=== PATIENT | female | born 1970 | race Caucasian/White ===

== ENCOUNTER 2017-01-03 11:48 | Outpatient (CLI) ==
[2013-03-21 18:34] VITALS: TEMP 97.4
[2016-07-26 16:50] VITALS: BMI 43.2
[2017-01-03 13:17] LABS: BILIRUBIN,URINE Negative (NEGATIVE); KETONES,URINE Negative (NEGATIVE); LEUKOCYTE ESTERASE ,URINE 3+ (NEGATIVE); NITRITE,URINE Positive (NEGATIVE); PROTEIN,URINE 3+ (NEGATIVE); URINE, BLOOD 3+ (NEGATIVE)
[2017-01-03 13:27] LABS: ADD URINE MICROSCOPIC YES; BACTERIA,URINE 2+ (NOT PRESENT)
== END 2017-01-03 11:49 | disposition home or self-care (01) ==
LOC: LAB 11:48
PROVIDERS: ATTEND Nurse Practitioner Family
DX: A59.9 Trichomoniasis, unspecified (principal); N39.0 Urinary tract infection, site not specified
CPT/HCPCS: 81001; 87086; 87186; 87800

== ENCOUNTER 2017-01-04 02:31 | Outpatient (CLI) ==
[2013-03-21 18:34] VITALS: TEMP 97.4
[2017-01-05 15:54] VITALS: BMI 43.5
== END 2017-01-04 02:32 ==
LOC: AMBL 02:31
PROVIDERS: ATTEND Family Medicine
DX: N39.0 Urinary tract infection, site not specified (principal); N20.0 Calculus of kidney

== ENCOUNTER 2017-01-05 15:40 | Emergency (ER) ==
[2017-01-05 15:54] VITALS: BP 156/97; TEMP 99.5; BMI 43.5
[2017-01-05 16:24] LABS: BILIRUBIN,URINE Negative (NEGATIVE); KETONES,URINE Negative (NEGATIVE); LEUKOCYTE ESTERASE ,URINE Negative (NEGATIVE); NITRITE,URINE Negative (NEGATIVE); PH,URINE 5.5 (5-9); PROTEIN,URINE Trace (NEGATIVE); URINE, BLOOD 1+ (NEGATIVE)
[2017-01-05 16:30] LABS: ADD URINE MICROSCOPIC YES; BACTERIA,URINE TRACE (NOT PRESENT)
[2017-01-05 16:46] LABS: BASOPHILS # (AUTO) 0.1 K/uL (0-0.2); BASOPHILS % (AUTO) 0.7 % (0.0-3.0); EOSINOPHILS # (AUTO) 0.2 K/ul (0.0-0.7); EOSINOPHILS % (AUTO) 2.7 % (0.0-7.0); HEMATOCRIT 42.5 % (37.0-47.0); HEMOGLOBIN 14.3 g/dl (12.0-16.0); IMMATURE GRANULOCYTE % (AUTO) 0.1 % (0.0-5.0); MEAN CORPUSCULAR HGB CONC 33.6 (31.8-35.4); MEAN CORPUSCULAR VOLUME 89.3 fl (81.0-99.0); MONOCYTES # (AUTO) 0.7 K/uL (0.4-2.0); MONOCYTES % (AUTO) 9.2 (0-10); NEUTROPHILS # (AUTO) 4.7 K/ul (2.0-6.9); NEUTROPHILS % (AUTO) 61.3; PLATELET COUNT 321 10^3/uL (140-440); RED BLOOD COUNT 4.76 10^6/ul (4.20-5.40); WHITE BLOOD COUNT 7.69 K/ul (4.6-10.2)
--- NOTE | 2017-01-05 16:57 | CT ---
EXAM: CT abdomen pelvis without contrast HISTORY: Abdominal pain COMPARISON: None TECHNIQUE: Serial axial images of the abdomen pelvis were performed from the lung bases through the inferior pelvis without contrast. These were viewed in multiple planes. FINDINGS: The lung bases are clear. Evaluation is limited due to lack of contrast. The liver is unremarkable. The gallbladder has been resected. The adrenal glands are normal. The kidneys are normal without obstructive uropathy. Th ere is a punctate 0.2 cm stone in the left mid pole. The spleen demonstrates multiple calcified gra nulomas. The pancreas is unremarkable. The stomach is mildly distended. The small bowel in the abdomen pelvis is unremarkable. The colon is unremarkable. There is a small fat-containing umbilical hernia. There is no free air, free fluid or lymphadenopathy. The urinary bladder is mildly distended. The uterus is not visualized. The distal appendix within the pelvis as seen on axial image 120 through 122 demonstrate some minimal peripheral hazy ground-glass with a central punctate calcification. The osseous structures are unremarkable. IMPRESSION: The distal appendix extending into the inferior pelvis demonstrates a central calcification and mini mal surrounding hazy ground-glass inflammatory stranding suggestive of early appendicitis. There is no free air or focal fluid collection identified. A nonobstructing left renal stone, a small fat-containing umbilical hernia and prior cholecystectomy .
[2017-01-05 17:03] LABS: ALBUMIN 3.9 g/dL (3.4-5.0); ALBUMIN/GLOBULIN RATIO 1.05; BILIRUBIN,TOTAL 0.36 mg/dL (0.00-1.20); BUN/CREATININE RATIO 10.28; CALCIUM 9.1 mg/dL (8.2-10.2); CREATININE 1.07 mg/dL (0.60-1.30); TOTAL PROTEIN 7.6 g/dL (6.4-8.2)
--- NOTE | 2017-01-05 17:06 | ED.PDOC ---
General ED Provider: Dr. NOHELIA MARTINES Chief Complaint: Urinary Problem Stated Complaint: left flank pain, dysuria Time Seen by Physician: 16:00 (left flank pain on cipro seen with entire nusing staff) Mode of Arrival: Walk-In Information Source: Patient Exam Limitations: No limitations Primary Care Provider: AARON KLEIN Nursing and Triage Documentation Reviewed and Agree: Yes (seen with nursing staff and ICE BAG ASSEMBLER) Complaint Exam - Complaint/Exam Patient Complains of: Reports: Dysuria Symptoms Are: Still present Timing: Intermittent Initial Severity: Mild Current Severity: Mild Location of Pain: Reports: Left, Flank Character: Reports: Dull Aggravating: Reports: Urination Alleviating: Reports: None Associated Signs and Symptoms: Reports: Back pain, Dysuria. Denies: Diaphoresis , Fever, Hematuria, Constipation, Blood in stool, Rectal pain, Appetite change, Nausea, Vomiting, Decreased urine output, Increased urine frequency, Increased thirst, Decreased activity, Lethargy, Abdominal Pain, Bubble bath use, Vaginal bleeding, Vaginal discharge, Genital swelling, Genital blisters, Retained foreign body Related History: Reports: Similar episode Differential Diagnoses: Renal Colic, Ureteral Stone, UTI Review of Systems - Review Of Systems Constitutional: Reports: No symptoms Eyes: Reports: No symptoms Ears, Nose, Mouth, Throat: Reports: No symptoms Respiratory: Reports: No symptoms Cardiac: Reports: No symptoms GI: Reports: No symptoms : Reports: Dysuria Musculoskeletal: Reports: Back pain Skin: Reports: No symptoms Neurological: Reports: No symptoms Endocrine: Reports: No symptoms Hematologic/Lymphatic: Reports: No symptoms All Other Systems: Reviewed and Negative Past Medical History - Past Medical History Endocrine: Reports: None Cardiovascular: Reports: None Respiratory: Reports: None Hematological: Reports: None Gastrointestinal: Reports: None Genitourinary: Reports: None Neuro/Psych: Reports: None Musculoskeletal: Reports: Back Pain Cancer: Reports: None Last Menstrual Period: tubal ligation Other Pertinent Past Medical History: Tonsils Carpal Tunnel Hysterectomy 2012 btl 1993 - Surgical History General Surgical History: Reports: Hysterectomy (2012), Tubal ligation (btl 1993 ), Cholecystectomy, Orthopedic (Carpal Tunnel), Other (SURGERY TO REMOVE KIDNEY STONE, HYSTERECTOMY 2010 CHOLECYSTECTOMY) - Family History Family History: Reports: None (parents( parents) alove and well-adopted by grandparents("old age") - Social History Smoking Status: Never smoker Hx Substance Use: Yes (past ) Alcohol Screening: None - Immunizations Tetanus Shot up to Date: (unknown) Physical Exam - Physical Exam Appearance: Well-appearing, No pain distress, Well-nourished Eyes: FLAVIO, EOMI, Conjunctiva clear ENT: Ears normal, Nose normal, Oropharynx normal Respiratory: Airway patent, Breath sounds clear, Breath sounds equal, Respirations nonlabored Cardiovascular: RRR, Pulses normal, No rub, No murmur GI/: Soft, Nontender, No masses, Bowel sounds normal, No Organomegaly Musculoskeletal: Normal strength, ROM intact, No edema, No calf tenderness Skin: Warm, Dry, Normal color Neurological: Sensation intact, Motor intact, Reflexes intact, Cranial nerves intact, Alert, Oriented Psychiatric: Affect appropriate, Mood appropriate Interpretation - Radiology Interpretation Radiology Interpretation By: Radiologist (none obstructing) Critical Care Note - Critical Care Note Total Time (mins): 0 Course - Course Hematology/Chemistry: 01/05/17 16:35 01/05/17 16:35 Orders, Labs, Meds: Lab Review 01/05/17 01/05/17 16:16 16:35 WBC 7.69 RBC 4.76 Hgb 14.3 Hct 42.5 MCV 89.3 MCH 30.0 MCHC 33.6 RDW Coeff of Raudel 12.1 Plt Count 321 Immature Gran % (Auto) 0.1 Neut % (Auto) 61.3 Lymph % (Auto) 26.0 [place] % (Auto) 9.2 Eos % (Auto) 2.7 Baso % (Auto) 0.7 Immature Gran # (Auto) 0.0 Neut # 4.7 Lymph # 2.0 [place] # 0.7 Eos # 0.2 Baso # 0.1 Sodium 141 Potassium 4.0 Chloride 106 Carbon Dioxide 26 Anion Gap 13.0 BUN 11 Creatinine 1.07 Estimated GFR (MDRD) 56.00 BUN/Creatinine Ratio 10.28 Glucose 98 Lactic Acid 9.9 Calcium 9.1 Total Bilirubin 0.36 AST 19 ALT 26 Alkaline Phosphatase 86 Total Protein 7.6 Albumin 3.9 Globulin 3.7 Albumin/Globulin Ratio 1.05 Urine Color Yellow Urine Clarity Slightly Urine pH 5.5 Ur Specific [place] 1.020 Urine Protein Trace Urine Glucose (UA) Negative Urine Ketones Negative Urine Blood 1+ Urine Nitrite Negative Urine Bilirubin Negative Urine Urobilinogen 0.2 Ur Leukocyte Esterase Negative Urine Microscopic RBC 5-10 Urine Microscopic WBC 5-10 Ur Squamous Epith Cells 5-10 Urine Bacteria Trace Urine Mucus Trace Orders Category Date Time Status BLOOD CULTURE Stat LAB 01/05/17 16:35 Received CBC W/ AUTO DIFF Stat LAB 01/05/17 16:35 Completed COMPREHENSIVE METABOLIC PANEL Stat LAB 01/05/17 16:35 Completed LACTIC ACID Stat LAB 01/05/17 16:35 Completed UA [URINALYSIS C & S IF INDICATED] Stat LAB 01/05/17 16:16 Completed URINE CULTURE Stat LAB 01/05/17 16:[address] ABDOMEN/PELVIS WO CONTRAST Stat RADS 01/05/17 16:15 Completed Vital Signs: Temp Pulse Resp BP Pulse Ox 01/05/17 15:41 99.5 F 80 20 156/97 H 95 Departure - Departure Time of Disposition: 17:12 (US [address]PORT [address] REPORT AND OTHER LABS WERE SHARED WITH PT WITH ICE BAG ASSEMBLER AT BEDSIDE ) Disposition: HOME SELF-CARE Discharge Problem: Urinary tract infectious disease, Urinary symptoms, Renal stone Instructions: Renal Colic (ED), Kidney Stones (ED), Flank Pain (ED) Condition: Good Pt referred to PMD for follow-up: No Allergies/Adverse Reactions: Allergies sulfathiazole [Sulfathiazole] Adverse Reaction (Severe, Verified 01/05/17 15:55) Swelling itching, swelling, rash Home Medications: Ambulatory Orders Hydrocodone/Acetaminophen [[place] 5-325 Tablet] 1 each PO Q6HR PRN #7 tablet Metronidazole [Flagyl] 500 mg PO TID 01/05/17 Nitrofurantoin Macrocrystal [Nitrofurantoin] 100 mg PO QID 01/05/17
== END 2017-01-05 17:22 | disposition home or self-care (01) ==
LOC: ED 15:40
DX: N39.0 Urinary tract infection, site not specified (principal); N20.0 Calculus of kidney
CPT/HCPCS: 36415; 80053; 81001; 83605; 85025; 87040; 87086; 99284

== ENCOUNTER 2017-02-28 11:43 | Outpatient (CLI) ==
[2013-03-21 18:34] VITALS: TEMP 97.4
== END 2017-02-28 11:44 | disposition home or self-care (01) ==
LOC: LAB 11:43
PROVIDERS: ATTEND Nurse Practitioner Family
DX: J02.9 Acute pharyngitis, unspecified (principal)
CPT/HCPCS: 87651; 87880

== ENCOUNTER → 2017-03-13 | Outpatient (POV) ==
[2013-03-21 18:34] VITALS: TEMP 97.4
== END ==
LOC: OUTPT 00:01
PROVIDERS: ATTEND Otolaryngology
DX: H91.91 Unspecified hearing loss, right ear (principal); H93.11 Tinnitus, right ear
CPT/HCPCS: 92557; 92567

== ENCOUNTER 2017-05-29 13:55 | Outpatient (CLI) ==
[2013-03-21 18:34] VITALS: TEMP 97.4
[2017-05-29 14:05] LABS: BILIRUBIN,URINE Negative (NEGATIVE); KETONES,URINE Negative (NEGATIVE); LEUKOCYTE ESTERASE ,URINE Negative (NEGATIVE); NITRITE,URINE Negative (NEGATIVE); PH,URINE 5.5 (5-9); PROTEIN,URINE Negative (NEGATIVE); URINE, BLOOD Trace-lysed (NEGATIVE)
[2017-05-29 14:06] LABS: ADD URINE MICROSCOPIC YES
[2017-05-29 14:15] LABS: BACTERIA,URINE 2+ (NOT PRESENT)
== END 2017-05-29 13:56 | disposition home or self-care (01) ==
LOC: LAB 13:55
PROVIDERS: ATTEND Nurse Practitioner Family
DX: R30.9 Painful micturition, unspecified (principal)
CPT/HCPCS: 81001; 87086

== ENCOUNTER 2017-06-20 23:55 | Emergency (ER) ==
[2017-06-20 23:56] VITALS: BMI 43.5
[2017-06-21 00:09] VITALS: BP 139/86; TEMP 99
[2017-06-21] MEDS ORDERED: LIDOCAINE HCL 1% SDV SUBCUT STA (00:24)
[2017-06-21] MEDS ORDERED: BOOSTRIX IM ONE (00:44)
--- NOTE | 2017-06-21 00:58 | ED.PDOC ---
General ED Provider: Dr. GERRY JULES Chief Complaint: Fall Stated Complaint: Fell off step stool. Hit mouth on countertop. Has laceration to left side of upper lip. Pain to approx 3 teeth on top left. Says iced it. Time Seen by Physician: 00:15 Mode of Arrival: Walk-In Information Source: Patient Primary Care Provider: AARON KLEIN Nursing and Triage Documentation Reviewed and Agree: Yes Skin Complaint Exam - Laceration/Head/Facial Complaint/Exam Location of Injury: Lip Mechanism of Injury: Blunt trauma Onset/Duration: 1 hour ago Symptoms Are: Still present Initial Severity: Severe Current Severity: Moderate Aggravating: Movement Alleviating: Compression Associated Signs and Symptoms: Denies: Fever, Chills, Erythema, Numbness, Tingling Lip Picture: 1 - Laceration continues to the mucosal surface with some bleeding. Differential Diagnoses: Laceration Review of Systems - Review Of Systems Constitutional: Reports: No symptoms Eyes: Reports: No symptoms Ears, Nose, Mouth, Throat: Denies: Loose teeth Respiratory: Reports: No symptoms Cardiac: Reports: No symptoms GI: Reports: No symptoms : Reports: No symptoms Musculoskeletal: Reports: No symptoms Skin: Reports: No symptoms, Other (Left lip laceration) Neurological: Reports: No symptoms Endocrine: Reports: No symptoms Hematologic/Lymphatic: Reports: No symptoms All Other Systems: Reviewed and Negative Past Medical History - Past Medical History Endocrine: Reports: None Cardiovascular: Reports: None Respiratory: Reports: None Hematological: Reports: None Gastrointestinal: Reports: None Genitourinary: Reports: None Neuro/Psych: Reports: None Musculoskeletal: Reports: Back Pain Cancer: Reports: None Last Menstrual Period: 2010 hysterectomy Other Pertinent Past Medical History: Tonsils Carpal Tunnel Hysterectomy 2012 btl 1993 - Surgical History General Surgical History: Reports: Hysterectomy (2012), Tubal ligation (btl 1993 ), Cholecystectomy, Orthopedic (Carpal Tunnel), Other (SURGERY TO REMOVE KIDNEY STONE, HYSTERECTOMY 2010 CHOLECYSTECTOMY) - Family History Family History: Reports: None (parents( parents) alove and well-adopted by grandparents("old age") - Social History Smoking Status: Never smoker Hx Substance Use: Yes (past ) Alcohol Screening: None - Immunizations Tetanus Shot up to Date: No Physical Exam - Physical Exam Appearance: Ill-appearing, No pain distress, Well-nourished, Obese Eyes: FLAVIO, EOMI, Conjunctiva clear ENT: Ears normal, Nose normal, Oropharynx normal (Front Teeth intact. ) Respiratory: Airway patent, Breath sounds clear, Breath sounds equal, Respirations nonlabored Cardiovascular: RRR, Pulses normal, No rub, No murmur GI/: Soft, Nontender, No masses, Bowel sounds normal, No Organomegaly Musculoskeletal: Normal strength, ROM intact, No edema, No calf tenderness Skin: Warm, Dry, Normal color Neurological: Sensation intact, Motor intact, Reflexes intact, Cranial nerves intact, Alert, Oriented Psychiatric: Affect appropriate, Mood appropriate Procedures - Laceration/Wound Repair Left upper lip Wound Length (cm): 1.5 Wound Width: 0.3 Wound Depth: 0.3 Wound Explored: Clean Wound Irrigated: Yes Wound Prep: Hibiclens Anesthesia: Lidocaine Wound Debrided: Minimal Undermining: Minimal Wound Margins: [place] border aligned Wound Repaired With: Sutures (3.0 vicryl ) Suture Size and Type: 3.0 Vicryl Number of Sutures: 4 (simple interrupted. ) Sterile Dressing Applied?: No Splint Applied?: No Sling Applied?: No Progress: Tolerated procedure well Critical Care Note - Critical Care Note Total Time (mins): 0 Course - Course Orders, Labs, Meds: Orders Category Date Time Status Acetaminophen [Tylenol] MEDS 06/21/17 01:03 Discontinued 1,000 mg PO ONCE STA Diphth,Pertuss(Acell),Tet Vac [Boostrix] MEDS 06/21/17 00:44 Discontinued 0.5 ml IM .ONCE ONE Lidocaine HCl/Pf [Lidocaine HCl 1% Sdv] MEDS 06/21/17 00:24 Discontinued 5 ml SUBCUT ONCE STA Medications Discontinued Medications Generic Name Dose Route Start Last Admin Trade Name Freq PRN Reason Stop Dose Admin Acetaminophen 1,000 mg 06/21/17 01:03 06/21/17 01:13 Tylenol PO 06/21/17 01:04 1,000 mg ONCE STA Administration Diphtheria/Pertussis/Tetanus Vacc 0.5 ml 06/21/17 00:44 06/21/17 00:54 Boostrix IM 06/21/17 00:45 0.5 ml .ONCE ONE Administration Lidocaine HCl 5 ml 06/21/17 00:24 06/21/17 00:57 Lidocaine Hcl 1% Sdv SUBCUT 06/21/17 00:25 5 ml ONCE STA Administration Vital Signs: Temp Pulse Resp BP Pulse Ox 06/20/17 23:56 99 F 79 20 139/86 96 Departure - Departure Time of Disposition: 00:58 Disposition: HOME SELF-CARE Discharge Problem: Laceration of lip without complication Instructions: Facial Laceration (ED) Condition: Stable Pt referred to PMD for follow-up: Yes (3 days ) Additional Instructions: Take Tylenol as needed for pain Follow up with PCp in 3 days Avoid bitting on any hard food with your front teeth for at lest two weeks. If pain continues see your dentist. Allergies/Adverse Reactions: Allergies sulfathiazole [Sulfathiazole] Adverse Reaction (Severe, Verified 06/21/17 00:09) Swelling itching, swelling, rash Home Medications: Ambulatory Orders 1 [No Reported Medications] 06/21/17 Disposition Discussed With: Patient, Family
[2017-06-21] MEDS ORDERED: TYLENOL PO STA (01:03)
== END 2017-06-21 01:20 | disposition home or self-care (01) ==
LOC: ED 23:55
DX: S01.511A Laceration without foreign body of lip, initial encounter (principal); W17.89XA Other fall from one level to another, initial encounter
CPT/HCPCS: 90471; 96372; 99283

== ENCOUNTER 2017-10-17 06:53 | Emergency (ER) ==
[2017-10-17 07:00] VITALS: BP 148/88; TEMP 97.4; BMI 43.4
--- NOTE | 2017-10-17 07:18 | ED.PDOC ---
General ED Provider: Dr. MARY LOU KESSLER Chief Complaint: Respiratory Complaint Stated Complaint: I ache all over. Concerned over possible Rt Sided pink eye- started on Saturday with respiratory congestion. Now aching all over and has Rt sided Flank pain -concerned over possible UTI. Hx previous Renal stone and lumbar spinal stenosis. Time Seen by Physician: 07:10 Mode of Arrival: Walk-In Information Source: Patient Exam Limitations: No limitations Primary Care Provider: JASON CLOUD Referred to ED by: Other Nursing and Triage Documentation Reviewed and Agree: Yes Reviewed sepsis parameters & appropriate labs ordered?: Yes System Inflammatory Response Syndrome: Not Applicable Sepsis Protocol: For patient's 13 years and over: Temp is 96.8 and below OR 101 and greater Pulse >90 BPM Resp >20/minute Acutely Altered Mental Status Are patient's symptoms suggestive of a new infection, such as: -Pneumonia -Skin, Soft Tissue -Endocarditis -UTI -Bone, Joint Infection -Implantable Device -Acute Abdominal Infection -Wound Infection -Meningitis -Blood Stream Catheter Infection -Unknown System Inflammatory Response Syndrome: Not Applicable Respiratory Complaint Exam - Respiratory Complaint/Exam Symptoms Are: Still present Timing: Intermittent Initial Severity: Mild Current Severity: Mild Location: Chest Character: Reports: Dry cough Aggravating: Reports: None Alleviating: Reports: None Associated Signs and Symptoms: Reports: Chills, URI, Nasal congestion, Sinus discomfort, Sore throat, Increased urination. Denies: Rapid breathing, Dyspnea , Wheezing, Calf swelling, Edema, Hoarseness, Decreased oral intake, Increased thirst, Increased appetite History of Healthcare-Acquired Pneumonia: No Review of Systems - Review Of Systems Constitutional: Reports: Chills, Malaise. Denies: Diaphoresis, Fever, Weakness , Sweats, Loss of appetite Eyes: Reports: Drainage, Inflammation, Pain. Denies: Previous injury, Shadows, Glasses Ears, Nose, Mouth, Throat: Reports: Throat pain. Denies: Ear pain, Ear discharge, Nose pain, Nose discharge, Epistaxis, Mouth pain, Mouth swelling, Loose teeth, Throat swelling Respiratory: Reports: Cough. Denies: Short of air, Stridor, Wheezing Cardiac: Reports: No symptoms GI: Reports: No symptoms : Reports: Flank pain. Denies: Burning, Dysuria, Discharge, Incontinence, Pain Musculoskeletal: Reports: Back pain, Muscle pain, Muscle stiffness. Denies: Neck pain Skin: Reports: No symptoms. Denies: Bruising, Change in color, Change in hair/ nails Neurological: Reports: No symptoms Endocrine: Reports: No symptoms Hematologic/Lymphatic: Reports: No symptoms All Other Systems: Reviewed and Negative Past Medical History - Past Medical History Endocrine: Reports: None Cardiovascular: Reports: None Respiratory: Reports: None Hematological: Reports: None Gastrointestinal: Reports: None Genitourinary: Reports: None, UTI, Kidney stones Neuro/Psych: Reports: None Musculoskeletal: Reports: Back Pain Cancer: Reports: None Last Menstrual Period: hysterectomy Other Pertinent Past Medical History: Tonsils Carpal Tunnel Hysterectomy 2012 btl 1993 - Surgical History General Surgical History: Reports: Hysterectomy (2012), Tubal ligation (btl 1993 ), Cholecystectomy, Orthopedic (Carpal Tunnel), Other (SURGERY TO REMOVE KIDNEY STONE, HYSTERECTOMY 2010 CHOLECYSTECTOMY) - Family History Family History: Reports: None (parents( parents) alove and well-adopted by grandparents("old age") - Social History Smoking Status: Never smoker Hx Substance Use: Yes (past ) Alcohol Screening: None 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 Bulbar conjunctiva normal; neg drainage (pt states crusted over last night)), Conjunctiva inflammed, Right pupil size (3mm), Left pupil size (3mm) ENT: Ears normal (EAC's dried Cerumen; Rt TM full, slightly erythrematous. Lt TM WNL), Nose normal, Oropharynx normal, Rhinorrhea Neck: Supple Respiratory: Airway patent, Breath sounds clear, Breath sounds equal, Respirations nonlabored Cardiovascular: RRR, Pulses normal, No rub, No murmur GI/: Soft, Nontender, No masses, Bowel sounds normal Musculoskeletal: Normal strength (Mild lt lumbar spine/flank tenderness-states always tender and hurting), ROM intact, No calf tenderness Skin: Warm, Dry, Normal color Neurological: Sensation intact, Motor intact, Cranial nerves intact, Alert, Oriented Psychiatric: Affect appropriate, Mood appropriate Re-Evaluation - Re-Evaluation Time of Re-Evaluation: 08:50 (Appears to be comfortable and states Tylenol has helped to reduce aching discomfort and headache.) Status: Unchanged Appearance: NAD Lungs: Clear Skin: Warm and Dry Neuro: Alert and Oriented X3 CV: RRR Critical Care Note - Critical Care Note Total Time (mins): 0 Course - Course Hematology/Chemistry: 10/17/17 07:40 10/17/17 07:40 Orders, Labs, Meds: Lab Review 10/17/17 10/17/17 10/17/17 07:30 07:40 07:40 WBC 5.02 RBC 4.60 Hgb 14.2 Hct 40.6 MCV 88.3 MCH 30.9 MCHC 35.0 RDW Coeff of Raudel 12.4 Plt Count 269 Immature Gran % (Auto) 0.2 Neut % (Auto) 43.6 Lymph % (Auto) 44.0 [place] % (Auto) 8.6 Eos % (Auto) 2.4 Baso % (Auto) 1.2 Immature Gran # (Auto) 0.0 Neut # 2.2 Lymph # 2.2 [place] # 0.4 Eos # 0.1 Baso # 0.1 Sodium 141 Potassium 4.0 Chloride 107 Carbon Dioxide 28 Anion Gap 10.0 BUN 13 Creatinine 1.01 Estimated GFR (MDRD) 59.00 BUN/Creatinine Ratio 12.87 Glucose 96 Calcium 9.0 Total Bilirubin 0.6 AST 20 ALT 27 Alkaline Phosphatase 74 Total Protein 6.9 Albumin 3.7 Globulin 3.2 Albumin/Globulin Ratio 1.16 Urine Color Urine Clarity Urine pH Ur Specific [place] Urine Protein Urine Glucose (UA) Urine Ketones Urine Blood Urine Nitrite Urine Bilirubin Urine Urobilinogen Ur Leukocyte Esterase Urine Microscopic WBC Ur Squamous Epith Cells Influenza A (Rapid) Negative by naat Influenza B (Rapid) Negative by naat 10/17/17 07:50 WBC RBC Hgb Hct MCV MCH MCHC RDW Coeff of Raudel Plt Count Immature Gran % (Auto) Neut % (Auto) Lymph % (Auto) [place] % (Auto) Eos % (Auto) Baso % (Auto) Immature Gran # (Auto) Neut # Lymph # [place] # Eos # Baso # Sodium Potassium Chloride Carbon Dioxide Anion Gap BUN Creatinine Estimated GFR (MDRD) BUN/Creatinine Ratio Glucose Calcium Total Bilirubin AST ALT Alkaline Phosphatase Total Protein Albumin Globulin Albumin/Globulin Ratio Urine Color Yellow Urine Clarity Clear Urine pH 5.5 Ur Specific [place] 1.025 Urine Protein Negative Urine Glucose (UA) Negative Urine Ketones Negative Urine Blood Trace-lysed Urine Nitrite Negative Urine Bilirubin Negative Urine Urobilinogen 0.2 Ur Leukocyte Esterase Negative Urine Microscopic WBC 0-2 Ur Squamous Epith Cells 10-20 Influenza A (Rapid) Influenza B (Rapid) Orders Category Date Time Status CBC W/ AUTO DIFF Stat LAB 10/17/17 07:40 Completed CMP [COMPREHENSIVE METABOLIC PANEL] Stat LAB 10/17/17 07:40 Completed FLU A & B RAPID TEST [MOLECULAR FLU A/B] Stat LAB 10/17/17 07:30 Completed URINALYSIS C & S IF INDICATED Stat LAB 10/17/17 07:50 Completed Acetaminophen [Tylenol] MEDS 10/17/17 07:47 Discontinued 325 mg PO ONCE STA Medications Discontinued Medications Generic Name Dose Route Start Last Admin Trade Name Freq PRN Reason Stop Dose Admin Acetaminophen 325 mg 10/17/17 07:47 10/17/17 08:00 Tylenol PO 10/17/17 07:48 325 mg ONCE STA Administration Vital Signs: Temp Pulse Resp BP Pulse Ox 10/17/17 06:53 97.4 F L 70 16 148/88 H 96 Departure - Departure Time of Disposition: 09:10 Disposition: HOME SELF-CARE Discharge Problem: URI (upper respiratory infection), Acute conjunctivitis, right eye, Chronic lower back pain, Otitis Condition: Good Pt referred to PMD for follow-up: Yes (1 week) Prescriptions: Azithromycin [Zithromax] 250 mg PO DAILY #6 tablet Neomycin/Polymyxin B/Hc Opth [Cortisporin Opth Susp] 1 - 2 drop EACHEYE Q8H #10 ml Allergies/Adverse Reactions: Allergies sulfathiazole [Sulfathiazole] Adverse Reaction (Severe, Verified 10/17/17 07:01) Swelling itching, swelling, rash Home Medications: Ambulatory Orders Azithromycin [Zithromax] 250 mg PO DAILY #6 tablet 10/17/17 Neomycin/Polymyxin B/Hc Opth [Cortisporin Opth Susp] 1 - 2 drop EACHEYE Q8H #10 ml 10/17/17 Disposition: HOME SELF-CARE Condition: Good Prescriptions: Azithromycin [Zithromax] 250 mg PO DAILY #6 tablet Neomycin/Polymyxin B/Hc Opth [Cortisporin Opth Susp] 1 - 2 drop EACHEYE Q8H #10 ml Additional Instructions: Stay well hydrated. Take Tylenol 1-2 tabs Return to ER if symptoms worsen or other problems develop that your concerned with every 4 hours for relief of pain Take all meds as directed
[2017-10-17] MEDS ORDERED: TYLENOL PO STA (07:47)
== END 2017-10-17 09:39 | disposition home or self-care (01) ==
LOC: ED 06:53
DX: J06.9 Acute upper respiratory infection, unspecified (principal); M54.5 Low back pain; G89.29 Other chronic pain; H10.31 Unspecified acute conjunctivitis, right eye; H66.90 Otitis media, unspecified, unspecified ear
CPT/HCPCS: 36415; 80053; 81001; 85025; 87502; 99283

== ENCOUNTER 2017-12-10 13:28 | Outpatient (CLI) ==
[2013-03-21 18:34] VITALS: TEMP 97.4
--- NOTE | 2017-12-10 14:34 | DI ---
Exam: Four x-rays of the cervical spine. Comparison: MRI performed 08/10/2015. Reason for exam: Cervicalgia. FINDINGS: No acute fracture or listhesis. The vertebral body and intervertebral body disc space hei ghts are relatively well maintained. The prevertebral soft tissues are borderline within normal limi ts. The dens appears intact on the open-mouth odontoid view. Impression: No acute fracture or listhesis is seen within the cervical spine.
--- NOTE | 2017-12-10 14:41 | DI ---
EXAM: Three views of the thoracic spine HISTORY: Thoracic pain. COMPARISON: Chest x-ray 03/19/2011 FINDINGS: There is no acute compression fracture or subluxation. There is a minimal disc space narro wing and osteophyte formation. There is no lytic or blastic lesion. Soft tissues are unremarkable. IMPRESSION: Mild multilevel degenerative disease of the thoracic spine with no acute compression fra cture.
--- NOTE | 2017-12-10 14:45 | DI ---
Exam: Five x-rays of the lumbar spine. Comparison: MRI performed 12/07/2015. Reason for exam: Low back pain. FINDINGS: No obvious vertebral body height loss is seen. There is multilevel degenerative disease w ith intervertebral body disc space height narrowing and osteophyte formation. Image interpretation i s limited by non orthogonal positioning. Impression: 1. No acute fracture or listhesis in the lumbar spine. 2. Multilevel degenerative disease with intervertebral body disc space height narrowing and osteophy te formation.
== END 2017-12-10 13:29 | disposition home or self-care (01) ==
LOC: RAD 13:28
PROVIDERS: ATTEND Nurse Practitioner Family
DX: M54.2 Cervicalgia (principal); M54.5 Low back pain; M54.6 Pain in thoracic spine

== ENCOUNTER 2018-04-01 07:21 | Outpatient (CLI) ==
[2013-03-21 18:34] VITALS: TEMP 97.4
--- NOTE | 2018-04-01 08:04 | DI ---
EXAM: Two views of the left knee History: Left knee pain. Comparison: Left knee radiograph 12/23/2010 Findings: No acute fracture or dislocation. Mild to moderate narrowing of the medial compartment an d mild narrowing of the lateral patellofemoral compartments with small osteophytes and slightly progr essed compared to the prior study. No abnormal calcifications or radiopaque foreign bodies. Impression: 1. No acute osseous abnormality. 2. Slightly progressive osteoarthritis
--- NOTE | 2018-04-01 08:06 | DI ---
EXAM: Two views of the right knee. History: Right knee pain. Comparison: Right knee radiograph 11/05/2012 Findings: No acute fracture or dislocation. Mild to moderate narrowing of the medial compartment an d mild narrowing of the lateral patellofemoral compartments with small osteophytes. This has slightl y progressed compared to the prior study. Impression: 1. No acute osseous abnormality. 2. Slightly progressive osteoarthritis
--- NOTE | 2018-04-01 08:07 | DI ---
EXAM: Three views of the lumbar spine. History: Chronic lower back pain. Comparison: Lumbar spine radiograph 12/10/2017 Findings: Cholecystectomy clips. No acute fracture or subluxation of the lumbar spine. Mild to mod erate multilevel degenerative disc space narrowing with endplate sclerosis and small osteophytes. Mi ld to moderate facet hypertrophy seen within the lower lumbar spine. Impression: 1. No acute osseous abnormality. 2. Mild to moderate degenerative changes not significantly changed compared to the prior study
--- NOTE | 2018-04-01 08:22 | US ---
EXAM: Right upper quadrant abdominal ultrasound. History: Right upper quadrant abdominal pain. Comparison: CT abdomen pelvis 01/05/2017 Technique: Multiple sonographic images through the abdomen were obtained. Color duplex Doppler was used to interrogate vascular flow. Findings: The liver is mildly enlarged measuring 18 cm in length. The visualized pancreas demonstrates no raquel s abnormality. No abdominal ascites. The liver is echogenic compared to the adjacent right renal co rtex. There is antegrade flow within the main portal vein. No focal liver lesions identified sonogr aphically. Status post cholecystectomy. Common bile duct measures 0.6 cm in caliber. Limited visua lization of the right kidney demonstrates no evidence for hydronephrosis. Impression: Mild hepatomegaly and probable mild hepatic steatosis. Correlate with liver function te sts. Status post cholecystectomy.
== END 2018-04-01 07:22 | disposition home or self-care (01) ==
LOC: RAD 07:21
PROVIDERS: ATTEND Physician Assistant
DX: R10.11 Right upper quadrant pain (principal); M25.562 Pain in left knee; M25.561 Pain in right knee; M54.5 Low back pain; G89.29 Other chronic pain; R60.0 Localized edema
CPT/HCPCS: 93005; 93010

== ENCOUNTER 2018-04-09 18:44 | Emergency (ER) ==
[2018-04-09 18:49] VITALS: BP 141/92; TEMP 98.2; BMI 43.5
--- NOTE | 2018-04-09 19:32 | ED.PDOC ---
General ED Provider: Dr. JASON JACKSON Chief Complaint: Back Pain Stated Complaint: Came for the right lower back pain , radiating to the right groin, patient was doing the shoping while it happened. rate pain at 10/10 sharp type, has h/o kidney stones Time Seen by Physician: 19:32 Mode of Arrival: Walk-In Information Source: Patient Primary Care Provider: BLAIR SORIA Nursing and Triage Documentation Reviewed and Agree: Yes Does patient meet sepsis criteria?: Yes If yes, has appropriate treatment been initiated?: No System Inflammatory Response Syndrome: Not Applicable Sepsis Protocol: For patient's 13 years and over: Temp is 96.8 and below OR 101 and greater Pulse >90 BPM Resp >20/minute Acutely Altered Mental Status Are patient's symptoms suggestive of a new infection, such as: -Pneumonia -Skin, Soft Tissue -Endocarditis -UTI -Bone, Joint Infection -Implantable Device -Acute Abdominal Infection -Wound Infection -Meningitis -Blood Stream Catheter Infection -Unknown Review of Systems - Review Of Systems Constitutional: Reports: No symptoms Eyes: Reports: No symptoms Ears, Nose, Mouth, Throat: Reports: No symptoms Respiratory: Reports: No symptoms Cardiac: Reports: No symptoms GI: Reports: Abdominal pain : Reports: No symptoms Musculoskeletal: Reports: No symptoms Skin: Reports: No symptoms Neurological: Reports: No symptoms Endocrine: Reports: No symptoms Hematologic/Lymphatic: Reports: No symptoms All Other Systems: Reviewed and Negative Past Medical History - Past Medical History Previously Healthy: Yes Endocrine: Reports: None Cardiovascular: Reports: None Respiratory: Reports: None Hematological: Reports: None Gastrointestinal: Reports: None Genitourinary: Reports: None, UTI, Kidney stones Neuro/Psych: Reports: None Musculoskeletal: Reports: Back Pain Cancer: Reports: None Last Menstrual Period: n/a Other Pertinent Past Medical History: Tonsils Carpal Tunnel Hysterectomy 2012 btl 1993 - Surgical History General Surgical History: Reports: Hysterectomy (2012), Tubal ligation (btl 1993 ), Cholecystectomy, Orthopedic (Carpal Tunnel), Other (SURGERY TO REMOVE KIDNEY STONE, HYSTERECTOMY 2010 CHOLECYSTECTOMY) - Family History Family History: Reports: None (parents( parents) alove and well-adopted by grandparents("old age") - Social History Smoking Status: Never smoker Hx Substance Use: Yes (past ) Alcohol Screening: None - Immunizations Influenza Vaccine within 12 Months: No Pneumococcal Vaccine up to Date: No Physical Exam - Physical Exam Appearance: Well-appearing, No pain distress, Well-nourished Eyes: FLAVIO, EOMI, Conjunctiva clear ENT: Ears normal, Nose normal, Oropharynx normal Respiratory: Airway patent, Breath sounds clear, Breath sounds equal, Respirations nonlabored Cardiovascular: RRR, Pulses normal, No rub, No murmur GI/: Soft, No masses, Bowel sounds normal, No Organomegaly, Tender (rt LQ) Musculoskeletal: Normal strength, ROM intact, No edema, No calf tenderness Skin: Warm, Dry, Normal color Neurological: Sensation intact, Motor intact, Reflexes intact, Cranial nerves intact, Alert, Oriented Psychiatric: Affect appropriate, Mood appropriate Interpretation - Radiology Interpretation Radiology Interpretation By: Radiologist Radiology Results: Negative Exam Interpreted: CT Scan Re-Evaluation - Re-Evaluation Time of Re-Evaluation: 20:26 (some pain above right hip. ) Status: Improved Critical Care Note - Critical Care Note Total Time (mins): 30 Course - Course Orders, Labs, Meds: Lab Review 04/09/18 18:54 Urine Color Yellow Urine Clarity Clear Urine pH 5.5 Ur Specific [place] >=1.030 Urine Protein Negative Urine Glucose (UA) Negative Urine Ketones Negative Urine Blood Trace-intact Urine Nitrite Negative Urine Bilirubin 1+ Urine Urobilinogen 0.2 Ur Leukocyte Esterase Negative Urine Microscopic RBC 0-2 Urine Microscopic WBC 0-2 Ur Squamous Epith Cells 5-10 Urine Bacteria 1+ Orders Category Date Time Status URINALYSIS C & S IF INDICATED Stat LAB 04/09/18 18:54 Completed URINE CULTURE Stat LAB 04/09/18 18:54 Received Ketorolac Tromethamine [Toradol] MEDS 04/09/18 19:45 Discontinued 60 mg .ROUTE .STK-MED ONE Ketorolac Tromethamine [Toradol] MEDS 04/09/18 19:44 Discontinued 60 mg IVP ONCE STA CT ABDOMEN/PELVIS WO CONTRAST Stat RADS 04/09/18 19:29 Completed Medications Discontinued Medications Generic Name Dose Route Start Last Admin Trade Name Freq PRN Reason Stop Dose Admin Ketorolac Tromethamine 60 mg 04/09/18 19:44 04/09/18 19:48 Toradol IVP 04/09/18 19:45 60 mg ONCE STA Administration Vital Signs: Temp Pulse Resp BP Pulse Ox 06/27/18 18:45 98.2 F 72 16 141/92 H 98 Departure - Departure Time of Disposition: 20:15 Disposition: HOME SELF-CARE Discharge Problem: Backache Abdominal pain Qualifiers: Abdominal location: right lower quadrant Qualified Code(s): R10.31 - Right lower quadrant pain Instructions: Back Pain (ED) Condition: Stable Pt referred to PMD for follow-up: Yes IPMP verified?: No Additional Instructions: Increase Hydration Keep f/u with PMD Prescriptions: Cyclobenzaprine HCl [Flexeril] 5 mg PO BID #14 tablet Prednisone 10 mg PO BIDWM #14 tablet Allergies/Adverse Reactions: Allergies sulfathiazole [Sulfathiazole] Adverse Reaction (Severe, Verified 10/17/17 07:01) Swelling itching, swelling, rash Home Medications: Ambulatory Orders Cholecalciferol (Vitamin D3) [Vitamin D] 400 unit PO DAILY 04/09/18 Cyclobenzaprine HCl [Flexeril] 5 mg PO BID #14 tablet 04/09/18 Prednisone 10 mg PO BIDWM #14 tablet 04/09/18 Disposition Discussed With: Patient
[2018-04-09] MEDS ORDERED: TORADOL IVP STA (19:44)
[2018-04-09] MEDS ORDERED: TORADOL ONE (19:45)
--- NOTE | 2018-04-09 20:04 | CT ---
EXAM: CT of the abdomen pelvis without contrast History: Right flank pain. Comparison: CT abdomen pelvis 01/05/2017 Technique: Multiplanar CT images through the abdomen pelvis were obtained without the administration of IV contrast Findings: Lung bases are free of consolidation. No acute osseous abnormalities. The liver is fatty. Status post cholecystectomy. Calcified granuloma within the spleen. No [place]ip[place] creatic inflammation. Adrenal glands are unremarkable. No renal stones and no hydronephrosis. No u reteral calculi. The appendix is not dilated or inflamed. Bladder is not well distended. No bladde r wall thickening. No bowel obstruction. Scattered colonic stool. No free air and no ascites. [place] maritza is not seen. No pelvic masses. Impression: 1. No acute intra-abdominal or pelvic process. 2. Hepatic steatosis
== END 2018-04-09 20:30 | disposition home or self-care (01) ==
LOC: ED 18:44
DX: M54.5 Low back pain (principal); R10.31 Right lower quadrant pain; Z87.442 Personal history of urinary calculi; Z87.440 Personal history of urinary (tract) infections
CPT/HCPCS: 81001; 87086; 96372; 99282

== ENCOUNTER 2018-05-05 17:19 | Outpatient (CLI) ==
[2013-03-21 18:34] VITALS: TEMP 97.4
--- NOTE | 2018-05-06 08:56 | DI ---
EXAM: Hip two-view HISTORY: Pain in right hip joint COMPARISON: 09/12/2012 FINDINGS: The bones are normal. The hip joint is normal. No focal soft tissue abnormality. IMPERSSION: Normal examination.
== END 2018-05-05 17:20 | disposition home or self-care (01) ==
LOC: RAD 17:19
PROVIDERS: ATTEND Physician Assistant
DX: M25.551 Pain in right hip (principal)

== ENCOUNTER 2018-05-21 12:49 | Outpatient (CLI) ==
[2013-03-21 18:34] VITALS: TEMP 97.4
--- NOTE | 2018-05-21 13:41 | CT ---
EXAM: CT of the abdomen pelvis without contrast History: Right-sided abdominal pain. Comparison: CT abdomen pelvis 04/09/2018 Technique: Multiplanar CT images through the abdomen pelvis were obtained without the administration of IV contrast Findings: Lung bases are clear. No acute osseous abnormalities. Status post cholecystectomy. No f ocal liver or splenic lesions. The liver is probably fatty. No peripancreatic inflammation. Adrena l glands are unremarkable. No renal stones and no hydronephrosis. The appendix is not dilated or in flamed. No dilated loops of bowel. Colonic diverticulosis. No bladder wall thickening. Uterus is not seen. No free air and no ascites. No inflammatory stranding. Impression: 1. No acute intra-abdominal or pelvic process. 2. Probable fatty liver. 3. Colonic diverticulosis
== END 2018-05-21 12:50 | disposition home or self-care (01) ==
LOC: RAD 12:49
PROVIDERS: ATTEND Physician Assistant
DX: R10.9 Unspecified abdominal pain (principal)

== ENCOUNTER 2018-07-16 16:33 | Outpatient (CLI) ==
[2013-03-21 18:34] VITALS: TEMP 97.4
--- NOTE | 2018-07-17 08:20 | DI ---
EXAM: Abdomen one view HISTORY: Constipation COMPARISON: None TECHNIQUE: Single view abdomen was performed. FINDINGS: There are no dilated loops of small bowel. There is air and stool throughout the colon. Mil d to moderate fecal retention in the colon. There are no abnormal calcifications. There are no acute abnormalities of the bones. Degenerative change in the spine. Surgical clips right upper quadrant th e right mid abdomen IMPRESSION: 1. No acute abnormality identified. 2. Mild to moderate fecal retention.
== END 2018-07-16 16:34 | disposition home or self-care (01) ==
LOC: CAR 16:33
PROVIDERS: ATTEND Physician Assistant
DX: R07.9 Chest pain, unspecified (principal); K59.00 Constipation, unspecified
CPT/HCPCS: 93005; 93010

== ENCOUNTER 2018-07-27 18:34 | Emergency (ER) ==
[2018-07-27 18:39] VITALS: BP 144/89; TEMP 98.6; BMI 44.2
[2018-07-27] MEDS ORDERED: MORPHINE 2 MG/ML SYRINGE IM STA (18:44)
[2018-07-27] MEDS ORDERED: TORADOL IM STA (18:44)
--- NOTE | 2018-07-27 18:44 | ED.PDOC ---
General Stated Complaint: im hurting Time Seen by Physician: 18:40 Mode of Arrival: Walk-In Information Source: Patient Exam Limitations: No limitations Nursing and Triage Documentation Reviewed and Agree: Yes Does patient meet sepsis criteria?: No System Inflammatory Response Syndrome: Not Applicable <MARY LOU QUINTERO - Last Filed: 07/27/18 18:44> <GERRY JULES - Last Filed: 07/27/18 20:17> ED Provider: Dr. GERRY JULES Chief Complaint: Back Pain Primary Care Provider: BLAIR SORIA Sepsis Protocol: For patient's 13 years and over: Temp is 96.8 and below OR 101 and greater Pulse >90 BPM Resp >20/minute Acutely Altered Mental Status Are patient's symptoms suggestive of a new infection, such as: -Pneumonia -Skin, Soft Tissue -Endocarditis -UTI -Bone, Joint Infection -Implantable Device -Acute Abdominal Infection -Wound Infection -Meningitis -Blood Stream Catheter Infection -Unknown GI Complaint Exam - Abdominal Pain Complaint/Exam Onset: Gradual Duration: 2 days Symptoms Are: Still present Timing: Constant Initial Severity: Mild Current Severity: Mild Location of Pain: RUQ Radiates To: Reports: Back, Flank Character: Reports: Dull, Aching Aggravating: Reports: Position Alleviating: Reports: Spontaneous resolution Associated Signs and Symptoms: Reports: Back pain Patient Rh Status: Unknown Abdominal Findings: Present: None Differential Diagnoses: Constipation, Renal Colic, Ureteral Stone <NIGRIDMARY LOU - Last Filed: 07/27/18 18:44> Review of Systems - Review Of Systems Constitutional: Reports: No symptoms Eyes: Reports: No symptoms Ears, Nose, Mouth, Throat: Reports: No symptoms Respiratory: Reports: No symptoms Cardiac: Reports: No symptoms GI: Reports: No symptoms : Reports: Flank pain, Pain Musculoskeletal: Reports: Back pain Skin: Reports: No symptoms Neurological: Reports: No symptoms Endocrine: Reports: No symptoms Hematologic/Lymphatic: Reports: No symptoms All Other Systems: Reviewed and Negative <MARY LOU QUINTERO - Last Filed: 07/27/18 18:44> Past Medical History - Past Medical History Previously Healthy: Yes Endocrine: Reports: None Cardiovascular: Reports: None Respiratory: Reports: None Hematological: Reports: None Gastrointestinal: Reports: None Genitourinary: Reports: None, UTI, Kidney stones Neuro/Psych: Reports: None Musculoskeletal: Reports: Back Pain Cancer: Reports: None Last Menstrual Period: HYSTERECTOMY Other Pertinent Past Medical History: Tonsils Carpal Tunnel Hysterectomy 2012 btl 1993 - Surgical History General Surgical History: Reports: Hysterectomy (2012), Tubal ligation (btl 1993 ), Cholecystectomy, Orthopedic (Carpal Tunnel), Other (SURGERY TO REMOVE KIDNEY STONE, HYSTERECTOMY 2010 CHOLECYSTECTOMY) - Family History Family History: Reports: None (parents( parents) alove and well-adopted by grandparents("old age") - Social History Smoking Status: Never smoker Hx Substance Use: Yes (past ) Alcohol Screening: None - Immunizations Tetanus Shot up to Date: No Influenza Vaccine within 12 Months: No Pneumococcal Vaccine up to Date: No <MARY LOU QUINTERO - Last Filed: 07/27/18 18:44> Physical Exam - Physical Exam Appearance: Well-appearing, No pain distress, Well-nourished Pain Distress: Moderate Eyes: FLAVIO ENT: Ears normal, Nose normal, Oropharynx normal Neck: Supple Respiratory: Airway patent, Breath sounds clear, Breath sounds equal, Respirations nonlabored Cardiovascular: RRR GI/: Soft, Nontender, No masses, Bowel sounds normal, No Organomegaly Musculoskeletal: Normal strength, ROM intact, No edema, No calf tenderness Skin: Warm, Dry, Normal color Neurological: Sensation intact, Motor intact, Reflexes intact, Cranial nerves intact, Alert, Oriented Psychiatric: Affect appropriate, Mood appropriate <MARY LOU QUINTERO - Last Filed: 07/27/18 18:44> Interpretation - Radiology Interpretation Radiology Interpretation By: Radiologist Radiology Results: Negative Exam Interpreted: CT Scan (Abdomen and Pelvis ) <GERRY JULES - Last Filed: 07/27/18 20:17> Physician Notification - Case Discussed Physician Notified: dr [email or web address] Time of Notification: 19:00 <MARY LOU QUINTERO - Last Filed: 07/27/18 18:44> Critical Care Note - Critical Care Note Total Time (mins): 0 <GERRY JULES Last Filed: 07/27/18 20:17> Course - Course Hematology/Chemistry: 07/27/18 18:56 07/27/18 18:56 <GERRY JULES - Last Filed: 07/27/18 20:17> - Course Orders, Labs, Meds: Lab Review 07/27/18 07/27/18 07/27/18 18:43 18:56 18:56 WBC 7.51 RBC 4.58 Hgb 13.6 Hct 39.6 MCV 86.5 MCH 29.7 MCHC 34.3 RDW Coeff of Raudel 12.1 Plt Count 290 Immature Gran % (Auto) 0.1 Neut % (Auto) 42.5 Lymph % (Auto) 46.7 [place] % (Auto) 7.1 Eos % (Auto) 2.7 Baso % (Auto) 0.9 Immature Gran # (Auto) 0.0 Neut # (Auto) 3.2 Lymph # (Auto) 3.5 H [place] # (Auto) 0.5 Eos # (Auto) 0.2 Baso # (Auto) 0.1 ESR Sodium 138.5 Potassium 3.79 Chloride 103.4 Carbon Dioxide 30.4 H Anion Gap 8.49 BUN 11.5 Creatinine 0.99 Estimated GFR (MDRD) 60.00 BUN/Creatinine Ratio 11.61 Glucose 97.3 Calcium 8.58 Total Bilirubin 0.35 AST 39.9 H ALT 35.3 H Alkaline Phosphatase 74.1 Total Protein 7.30 Albumin 4.38 Globulin 2.92 Albumin/Globulin Ratio 1.50 Amylase 50.5 Lipase 73.8 Urine Color Yellow Urine Clarity Clear Urine pH 5.5 Ur Specific [place] >=1.030 Urine Protein Negative Urine Glucose (UA) Negative Urine Ketones Negative Urine Blood Trace-lysed Urine Nitrite Negative Urine Bilirubin Negative Urine Urobilinogen 0.2 Ur Leukocyte Esterase Trace Urine Microscopic WBC 2-5 Ur Squamous Epith Cells 5-10 Amorphous Sediment Trace Urine Bacteria Trace 07/27/18 18:56 WBC RBC Hgb Hct MCV MCH MCHC RDW Coeff of [place]audel Plt Count Immature Gran % (Auto) Neut % (Auto) Lymph % (Auto) [place] % (Auto) Eos % (Auto) Baso % (Auto) Immature Gran # (Auto) Neut # (Auto) Lymph # (Auto) [place] # (Auto) Eos # (Auto) Baso # (Auto) ESR 7 Sodium Potassium Chloride Carbon Dioxide Anion Gap BUN Creatinine Estimated GFR (MDRD) BUN/Creatinine Ratio Glucose Calcium Total Bilirubin AST ALT Alkaline Phosphatase Total Protein Albumin Globulin Albumin/Globulin Ratio Amylase Lipase Urine Color Urine Clarity Urine pH Ur Specific [place] Urine Protein Urine Glucose (UA) Urine Ketones Urine Blood Urine Nitrite Urine Bilirubin Urine Urobilinogen Ur Leukocyte Esterase Urine Microscopic WBC Ur Squamous Epith Cells Amorphous Sediment Urine Bacteria Orders Category Date Time Status AMYLASE Stat LAB 07/27/18 18:56 Completed CBC W/ AUTO DIFF Stat LAB 07/27/18 18:56 Completed COMPREHENSIVE METABOLIC PANEL Stat LAB 07/27/18 18:56 Completed ESR Stat LAB 07/27/18 18:56 Completed LIPASE Stat LAB 07/27/18 18:56 Completed URINALYSIS C & S IF INDICATED Stat LAB 07/27/18 18:43 Completed Ketorolac Tromethamine [Toradol] MEDS 07/27/18 18:44 Discontinued 60 mg IM ONCE STA Morphine Sulfate [Morphine 2 mg/ml Syringe] MEDS 07/27/18 18:58 Discontinued 2 mg .ROUTE .STK-MED ONE Morphine Sulfate [Morphine 2 mg/ml Syringe] MEDS 07/27/18 18:44 Discontinued 4 mg IM ONCE STA Ondansetron HCl/Pf [Zofran 4 mg/2 ml] MEDS 07/27/18 18:45 Discontinued 4 mg IM ONCE STA CT ABD/PEL WO RENAL STONE PROT Stat RADS 07/27/18 18:41 Completed Medications Discontinued Medications Generic Name Dose Route Start Last Admin Trade Name Jered PRN Reason Stop Dose Admin Ketorolac Tromethamine 60 mg 07/27/18 18:44 07/27/18 18:52 Toradol IM 07/27/18 18:45 60 mg ONCE STA Administration Morphine Sulfate 4 mg 07/27/18 18:44 07/27/18 18:53 Morphine 2 Mg/Ml Syringe IM 07/27/18 18:45 4 mg ONCE STA Administration Ondansetron HCl 4 mg 07/27/18 18:45 07/27/18 19:02 Zofran 4 Mg/2 Ml IM 07/27/18 18:46 4 mg ONCE STA Administration Vital Signs: Temp Pulse Resp BP Pulse Ox 07/27/18 18:35 98.6 F 85 18 144/89 H 98 Departure <MARY LOU QUINTERO - Last Filed: 07/27/18 18:44> - Departure Time of Disposition: 19:58 Pt referred to PMD for follow-up: Yes IPMP verified?: No Disposition Discussed With: Patient, Family <GERRY JULES - Last Filed: 07/27/18 20:17> - Departure Disposition: HOME SELF-CARE Discharge Problem: Backache Instructions: Back Pain (ED) Condition: Stable Additional Instructions: Follow up with your PCP in 3 days Continue to take home flexeril and naproxen as needed for spasms and pain Allergies/Adverse Reactions: Allergies sulfathiazole [Sulfathiazole] Adverse Reaction (Severe, Verified 07/27/18 18:35) Swelling itching, swelling, rash Home Medications: Ambulatory Orders Cholecalciferol (Vitamin D3) [Vitamin D] 400 unit PO DAILY 04/09/18
[2018-07-27] MEDS ORDERED: ZOFRAN 4 MG/2 ML IM STA (18:45)
[2018-07-27] MEDS ORDERED: MORPHINE 2 MG/ML SYRINGE ONE (18:58)
--- NOTE | 2018-07-27 19:17 | CT ---
EXAM: CT abdomen pelvis without intravenous contrast 07/27/2018. Sagittal and coronal reformatted i mages obtained HISTORY: Right flank pain COMPARISON: 05/21/2018 FINDINGS: The liver shows no acute abnormality. Gallbladder has been removed. The adrenal glands and kidneys show no acute abnormality. The spleen and pancreas show no acute abnormality. There is no bowel obstruction. Normal appendix. Unremarkable urinary bladder. No free air or free fluid. Colonic diverticulosis without diverticulitis. No acute osseous abnormality. IMPRESSION: 1. No urinary or bowel obstruction and normal appendix. 2. Status post cholecystectomy. 3. No acute inflammatory process identified within the limitation of a noncontrast enhanced examinat ion.
== END 2018-07-27 20:10 | disposition home or self-care (01) ==
LOC: ED 18:34
DX: M54.9 Dorsalgia, unspecified (principal); R10.11 Right upper quadrant pain; Z87.440 Personal history of urinary (tract) infections; Z87.442 Personal history of urinary calculi
CPT/HCPCS: 36415; 74176; 80053; 81001; 82150; 83690; 85025; 85651; 96372; 99283

== ENCOUNTER 2018-10-18 07:43 | Emergency (ER) ==
[2018-10-18 07:53] VITALS: TEMP 96.6; BMI 44.7
[2018-10-18 09:03] VITALS: BP 133/95
--- NOTE | 2018-10-18 09:08 | ED.PDOC ---
General ED Provider: Dr. GERRY JULES Chief Complaint: Sore Throat Stated Complaint: Patient is a 48 year old female who comes to the ER with sore throat, biliterally ear pain, used OTC Sudefed. Also complains of cough. Time Seen by Physician: 08:00 Mode of Arrival: Walk-In Information Source: Patient Primary Care Provider: BLAIR SORIA Nursing and Triage Documentation Reviewed and Agree: Yes Does patient meet sepsis criteria?: No System Inflammatory Response Syndrome: Not Applicable Sepsis Protocol: For patient's 13 years and over: Temp is 96.8 and below OR 101 and greater Pulse >90 BPM Resp >20/minute Acutely Altered Mental Status Are patient's symptoms suggestive of a new infection, such as: -Pneumonia -Skin, Soft Tissue -Endocarditis -UTI -Bone, Joint Infection -Implantable Device -Acute Abdominal Infection -Wound Infection -Meningitis -Blood Stream Catheter Infection -Unknown Review of Systems - Review Of Systems Constitutional: Reports: No symptoms Eyes: Reports: No symptoms Ears, Nose, Mouth, Throat: Reports: Throat pain Respiratory: Reports: Cough Cardiac: Reports: No symptoms GI: Reports: No symptoms : Reports: No symptoms Musculoskeletal: Reports: No symptoms Skin: Reports: No symptoms Neurological: Reports: No symptoms Endocrine: Reports: No symptoms Hematologic/Lymphatic: Reports: No symptoms All Other Systems: Reviewed and Negative Past Medical History - Past Medical History Previously Healthy: Yes Endocrine: Reports: None Cardiovascular: Reports: None Respiratory: Reports: None Hematological: Reports: None Gastrointestinal: Reports: None Genitourinary: Reports: UTI, Kidney stones Neuro/Psych: Reports: None Musculoskeletal: Reports: Back Pain Cancer: Reports: None Last Menstrual Period: na Other Pertinent Past Medical History: Tonsils Carpal Tunnel Hysterectomy 2012 btl 1993 - Surgical History General Surgical History: Reports: Hysterectomy (2012), Tubal ligation (btl 1993 ), Cholecystectomy, Orthopedic (Carpal Tunnel), Other (SURGERY TO REMOVE KIDNEY STONE, HYSTERECTOMY 2010 CHOLECYSTECTOMY) - Family History Family History: Reports: None (parents( parents) alove and well-adopted by grandparents("old age") - Social History Smoking Status: Never smoker Hx Substance Use: No Alcohol Screening: None - Immunizations Influenza Vaccine within 12 Months: No Pneumococcal Vaccine up to Date: No Physical Exam - Physical Exam Appearance: Well-appearing, No pain distress, Well-nourished Eyes: FLAVIO, EOMI, Conjunctiva clear ENT: Ears normal, Nose normal, Oropharynx normal Respiratory: Airway patent, Breath sounds clear, Breath sounds equal, Respirations nonlabored Cardiovascular: RRR, Pulses normal, No rub, No murmur GI/: Soft, Nontender, No masses, Bowel sounds normal, No Organomegaly Musculoskeletal: Normal strength, ROM intact, No edema, No calf tenderness Skin: Warm, Dry, Normal color Neurological: Sensation intact, Motor intact, Reflexes intact, Cranial nerves intact, Alert, Oriented Psychiatric: Affect appropriate, Mood appropriate Critical Care Note - Critical Care Note Total Time (mins): 0 Course - Course Orders, Labs, Meds: Lab Review 10/18/18 08:00 Influ A Molecular Assay Negative by naat Influ B Molecular Assay Negative by naat Orders Category Date Time Status FLU A & B MOLECULAR [FLU A/B MOLECULAR] Stat LAB 10/18/18 08:00 Completed RAPID STREP SCREEN [MOLECULAR GROUP A STREP] Stat LAB 10/18/18 08:00 Completed Vital Signs: Temp Pulse Resp BP Pulse Ox 10/18/18 09:02 133/95 H 10/18/18 07:44 96.6 F L 85 16 147/105 H 98 Departure - Departure Time of Disposition: 09:03 Disposition: HOME SELF-CARE Discharge Problem: Sore throat symptom, Cough in adult Instructions: Pharyngitis (ED), Cold Symptoms (ED) Condition: Good Pt referred to PMD for follow-up: Yes IPMP verified?: No Additional Instructions: Push fluids Follow up with PCP in 3 days Take cough Medications as prescribed Return if worse. Get OTC Allergy medications. Prescriptions: Benzonatate [Tessalon Perles] 100 mg PO TID PRN #25 capsule PRN Reason: Cold Symptons Allergies/Adverse Reactions: Allergies sulfathiazole [Sulfathiazole] Adverse Reaction (Severe, Verified 10/18/18 07:53) Swelling itching, swelling, rash Home Medications: Ambulatory Orders Benzonatate [Tessalon Perles] 100 mg PO TID PRN #25 capsule 10/18/18 Disposition Discussed With: Patient, Family
== END 2018-10-18 09:22 | disposition home or self-care (01) ==
LOC: ED 07:43
DX: J02.9 Acute pharyngitis, unspecified (principal); R05 Cough
CPT/HCPCS: 87502; 87651; 99283

== ENCOUNTER 2018-11-08 07:54 | Outpatient (CLI) ==
[2013-03-21 18:34] VITALS: TEMP 97.4
== END 2018-11-08 07:55 | disposition home or self-care (01) ==
LOC: LAB 07:54
PROVIDERS: ATTEND Nurse Practitioner Family
DX: E78.2 Mixed hyperlipidemia (principal)
CPT/HCPCS: 36415; 80061

== ENCOUNTER 2018-12-26 14:40 | Emergency (ER) ==
[2018-12-26 14:50] VITALS: BP 165/108; TEMP 97.9; BMI 45.6
== END 2018-12-26 15:35 | disposition left against medical advice (07) ==
LOC: ED 14:40
DX: R31.9 Hematuria, unspecified (principal)
CPT/HCPCS: 99282

== ENCOUNTER 2019-01-28 18:19 | Outpatient (CLI) ==
[2013-03-21 18:34] VITALS: TEMP 97.4
== END 2019-01-28 18:20 | disposition home or self-care (01) ==
LOC: LAB 18:19
PROVIDERS: ATTEND Nurse Practitioner Family
DX: R60.0 Localized edema (principal); E66.9 Obesity, unspecified
CPT/HCPCS: 36415; 80053; 81001; 82043; 83036; 84100; 85025

== ENCOUNTER 2019-02-16 07:48 | Emergency (ER) ==
[2019-02-16 08:03] VITALS: BP 139/92; TEMP 97.4; BMI 46.2
--- NOTE | 2019-02-16 08:48 | CT ---
EXAM: CT of the abdomen pelvis without contrast History: Right flank pain. Comparison: CT abdomen pelvis 07/27/2018 Technique: Multiplanar CT images through the abdomen pelvis were obtained without the administration of IV contrast Findings: Lung bases are clear. No acute osseous abnormalities. Status post cholecystectomy. No focal liver lesions. Calcified granulomas within the spleen. No pe ripancreatic inflammation. Adrenal glands are unremarkable. No renal stones and no hydronephrosis. The appendix is normal. No ureteral calculi. Bladder is not well distended. No bowel obstruction. Colonic diverticulosis. No free air and no ascites. Status post hysterectomy. No abdominal aorti c aneurysm. No pathologically enlarged lymph nodes. Impression: No acute intra-abdominal or pelvic process. Colonic diverticulosis
--- NOTE | 2019-02-16 09:25 | ED.PDOC ---
General ED Provider: Dr. NOHELIA MARTINES Chief Complaint: Back Pain Stated Complaint: right flank pain atraumatic lower abdominal pain Time Seen by Physician: 08:00 (present at all times february ) Mode of Arrival: Walk-In Information Source: Patient Exam Limitations: No limitations Primary Care Provider: FELA MOLINA Nursing and Triage Documentation Reviewed and Agree: Yes Does patient meet sepsis criteria?: No System Inflammatory Response Syndrome: Not Applicable Sepsis Protocol: For patient's 13 years and over: Temp is 96.8 and below OR 101 and greater Pulse >90 BPM Resp >20/minute Acutely Altered Mental Status Are patient's symptoms suggestive of a new infection, such as: -Pneumonia -Skin, Soft Tissue -Endocarditis -UTI -Bone, Joint Infection -Implantable Device -Acute Abdominal Infection -Wound Infection -Meningitis -Blood Stream Catheter Infection -Unknown Musculoskeletal Complaint Exam - Back Pain Complaint/Exam Mechanism of Injury: Reports: No known trauma Onset/Duration: 1 day Symptoms Are: Still present Timing: Intermittent Episodes Lasting: Minutes Initial Severity: Moderate Current Severity: Mild Location: Reports: Discrete Character: Reports: Aching Aggravating: Reports: None Alleviating: Reports: None Associated Signs and Symptoms: Denies: Swelling, Redness, Bruising, Fever, Weakness, Numbness, Tingling, Abdominal pain, Flank pain, Bladder incontinence, Bowel incontinence, Weight loss, Pain with weight bearing Related History: Reports: Similar episode TAD Risk Factors: Reports: None Cauda Equina Risk Factors: Reports: None Epidural Abcess Risk Factors: Reports: None Related Surgical History: Reports: None Focal Tenderness: No Paraspinal Muscle Tenderness: No Paraspinal Muscle Spasm: No Scoliosis: No Lordosis: No Kyphosis: No SLR Test: Right Negative, Left Negative Hip Motion Testing Pain: Right Negative, Left Negative Focal Weakness: Present: None Focal Sensory Loss: Present: None Gait: Present: Normal Differential Diagnoses: Renal Colic, Strain, Sprain Review of Systems - Review Of Systems Constitutional: Reports: No symptoms Eyes: Reports: No symptoms Ears, Nose, Mouth, Throat: Reports: No symptoms Respiratory: Reports: No symptoms Cardiac: Reports: No symptoms GI: Reports: No symptoms : Reports: No symptoms Musculoskeletal: Reports: Back pain Skin: Reports: No symptoms Neurological: Reports: No symptoms Endocrine: Reports: No symptoms Hematologic/Lymphatic: Reports: No symptoms All Other Systems: Reviewed and Negative Past Medical History - Past Medical History Previously Healthy: Yes Endocrine: Reports: None Cardiovascular: Reports: None Respiratory: Reports: None Hematological: Reports: None Gastrointestinal: Reports: None Genitourinary: Reports: UTI, Kidney stones Neuro/Psych: Reports: None Musculoskeletal: Reports: Back Pain Cancer: Reports: None Last Menstrual Period: hysterectomy Other Pertinent Past Medical History: Tonsils Carpal Tunnel Hysterectomy 2012 btl 1993 - Surgical History General Surgical History: Reports: Hysterectomy (2012), Tubal ligation (btl 1993 ), Cholecystectomy, Orthopedic (Carpal Tunnel), Other (SURGERY TO REMOVE KIDNEY STONE, HYSTERECTOMY 2010 CHOLECYSTECTOMY) - Family History Family History: Reports: None (parents( parents) alove and well-adopted by grandparents("old age") - Social History Smoking Status: Never smoker Hx Substance Use: No Alcohol Screening: None - Immunizations Influenza Vaccine within 12 Months: No Pneumococcal Vaccine up to Date: No Physical Exam - Physical Exam Appearance: Well-appearing, No pain distress, Well-nourished Eyes: FLAVIO, EOMI, Conjunctiva clear ENT: Ears normal, Nose normal, Oropharynx normal Respiratory: Airway patent, Breath sounds clear, Breath sounds equal, Respirations nonlabored Cardiovascular: RRR, Pulses normal, No rub, No murmur GI/: Soft, Nontender, No masses, Bowel sounds normal, No Organomegaly Musculoskeletal: Normal strength, ROM intact, No edema, No calf tenderness Skin: Warm, Dry, Normal color Neurological: Sensation intact, Motor intact, Reflexes intact, Cranial nerves intact, Alert, Oriented Psychiatric: Affect appropriate, Mood appropriate Interpretation - Radiology Interpretation Radiology Interpretation By: Radiologist Radiology Results: No acute changes Exam Interpreted: CT Scan - Technical System Analyst Rate: Normal Rhythm: Sinus Ectopy: None - EKG Interpretation Rate: Normal Rhythm: Sinus Ectopy: None [place]: NL ST Segment: Normal Critical Care Note - Critical Care Note Total Time (mins): 0 Course - Course Hematology/Chemistry: 02/16/19 08:13 02/16/19 08:13 Orders, Labs, Meds: Lab Review 02/16/19 02/16/19 02/16/19 08:10 08:13 08:13 WBC 6.47 RBC 4.87 Hgb 14.7 Hct 43.3 MCV 88.9 MCH 30.2 MCHC 33.9 RDW Coeff of Raudel 12.2 Plt Count 283 Immature Gran % (Auto) 0.2 Neut % (Auto) 38.5 Lymph % (Auto) 48.7 [place] % (Auto) 8.3 Eos % (Auto) 3.1 Baso % (Auto) 1.2 Immature Gran # (Auto) 0.0 Neut # (Auto) 2.5 Lymph # (Auto) 3.2 [place] # (Auto) 0.5 Eos # (Auto) 0.2 Baso # (Auto) 0.1 Sodium 139.0 Potassium 3.72 Chloride 101.8 Carbon Dioxide 29.1 Anion Gap 11.82 BUN 9.6 Creatinine 0.95 Estimated GFR (MDRD) 63.00 BUN/Creatinine Ratio 10.10 Glucose 94.2 Calcium 9.11 Total Bilirubin 0.66 AST 30.8 ALT 34.3 Alkaline Phosphatase 82.4 Total Protein 7.59 Albumin 4.83 Globulin 2.76 Albumin/Globulin Ratio 1.75 Amylase 56.3 Lipase 61.3 Urine Color Yellow Urine Clarity Clear Urine pH 6.5 Ur Specific [place] 1.020 Urine Protein Negative Urine Glucose (UA) Negative Urine Ketones Negative Urine Blood Trace-intact Urine Nitrite Negative Urine Bilirubin Negative Urine Urobilinogen 0.2 Ur Leukocyte Esterase Negative Urine Microscopic RBC 0-2 Ur Squamous Epith Cells 10-20 Orders Category Date Time Status AMYLASE Stat LAB 02/16/19 08:13 Completed CBC W/ AUTO DIFF Stat LAB 02/16/19 08:13 Completed COMPREHENSIVE METABOLIC PANEL Stat LAB 02/16/19 08:13 Completed LIPASE Stat LAB 02/16/19 08:13 Completed URINALYSIS C & S IF INDICATED Stat LAB 02/16/19 08:[address] ABD/PEL WO RENAL STONE PROT Stat RADS 02/16/19 08:08 Completed Vital Signs: Temp Pulse Resp BP Pulse Ox 02/16/19 07:53 97.4 F L 70 20 139/92 H 98 Departure - Departure Time of Disposition: 09:26 Disposition: HOME SELF-CARE Discharge Problem: Backache Instructions: Back Pain (ED) Condition: Good Pt referred to PMD for follow-up: Yes IPMP verified?: No Additional Instructions: Please call your Family Physician as soon as possible to schedule a follow-up appointment. Prescriptions: Hydrocodone Bit/Acetaminophen [Lorain 10-325] 1 each PO Q6HR #3 tablet Allergies/Adverse Reactions: Allergies sulfathiazole [Sulfathiazole] Adverse Reaction (Severe, Verified 02/16/19 07:59) Swelling itching, swelling, rash Home Medications: Ambulatory Orders Hydrocodone Bit/Acetaminophen [Lorain 10-325] 1 each PO Q6HR #3 tablet 02/16/19 Disposition Discussed With: Patient
== END 2019-02-16 09:35 | disposition home or self-care (01) ==
LOC: ED 07:48
DX: M54.9 Dorsalgia, unspecified (principal); R10.30 Lower abdominal pain, unspecified; Z87.440 Personal history of urinary (tract) infections; Z87.442 Personal history of urinary calculi
CPT/HCPCS: 36415; 74176; 80053; 81001; 82150; 83690; 85025; 99283